=== PATIENT | female | born 1985 ===

== ENCOUNTER 2018-08-09 18:32 | Inpatient (IN) | payer OTHER ==
[~2018-08-09] VITALS: Ht 152.4 cm; Wt 64.4 kg
[2018-08-09] MEDS ORDERED: PRENATAL TABLE1 EAC1 PO (19:48)
== END 2018-08-11 10:48 | disposition home or self-care (01) | DRG 832 ==
LOC: LDR 18:32
PROVIDERS: ADMIT Obstetrics & Gynecology
PROC: 4A1HXCZ Monitoring of Products of Conception, Cardiac Rate, External Approach (ICD-10-PCS; principal; 2018-08-09)
DX: O99.012 Anemia complicating pregnancy, second trimester (principal); O47.02 False labor before 37 completed weeks of gestation, second trimester; Z34.02 Encounter for supervision of normal first pregnancy, second trimester

== ENCOUNTER 2018-09-13 13:20 | Outpatient (CLI) | payer OTHER ==
[~2018-09-13 13:20] MED LIST: PRENATAL TABLE1 EAC1 PO
== END 2018-09-13 14:54 | disposition home or self-care (01) ==
LOC: NST 13:20
DX: Z34.83 Encounter for supervision of other normal pregnancy, third trimester (principal)

== ENCOUNTER 2018-11-01 15:14 | Outpatient (CLI) | payer OTHER | END 2018-11-01 19:02 | disposition home or self-care (01) | LOC: NST 15:14 | DX: Z34.83 Encounter for supervision of other normal pregnancy, third trimester (principal) ==